=== PATIENT | female | born 1965 | race Caucasian/White ===

== ENCOUNTER 2016-08-31 11:21 | Emergency (ER) | payer BC ==
[2016-08-31] MEDS ORDERED: Aspirin 81 MG Tab.Chew PO ONE (11:22)
[2016-08-31] MEDS ORDERED: Aspirin 81 MG Tab.Chew ONE (11:24)
[2016-08-31 11:55] VITALS: BP 193/82
[2016-08-31] MEDS ORDERED: Ondansetron 4 MG/2 ML SDV ONE (12:01)
[2016-08-31] MEDS ORDERED: Ondansetron 4 MG/2 ML SDV IVPUSH ONE (12:09)
[2016-08-31] MEDS ORDERED: GI Cocktail 45 ML BOTTLE PO ONE (12:10)
[2016-08-31] MEDS ORDERED: Acetaminophen 500 MG Tab PO ONE (12:10)
[2016-08-31 12:26] LABS: CHLORIDE,CL 101 mmol/L (98-115); SODIUM,NA 136 mmol/L (136-145)
--- NOTE | 2016-08-31 12:35 | EDM.PDOC ---
ED HPI GENERAL MEDICAL PROBLEM - General Chief Complaint: Chest Pain Stated Complaint: chest pain, headache Time Seen by Provider: 08/31/16 11:30 Source of Information: Reports: Patient History Limitations: Reports: No Limitations - History of Present Illness INITIAL COMMENTS - FREE TEXT/NARRATIVE: 51-year-old female presents to the emergency room with complaints of epigastric pain,headache, nausea. Her symptoms began yesterday after she reports that they fried some pizza burgers. She had some epigastric pain, and took Tums and this gave her some mild relief. She also noticed that her pain would radiate to her shoulder blades. She had associated nausea but no vomiting. She reports and describes the pain as a burning pain. Denied palpitations or chest pressure. He does have a history of reflux disease and takes Prilosec on a daily basis for the past 3 years. She reports no underlying coronary artery disease or high cholesterol she is aware of but her father had a massive MN and from this at the age 69. She is hypertensive and is on now for different blood pressure medications for this. She noticed that she woke up this morning with a headache and did notice some complaints of dyspnea on exertion. She called the clinic and they felt that she should present to the ER for further evaluation and workup. Onset: Gradual Onset Date: 08/30/16 Onset Time: 12:00 Duration: Hour(s):, Improving Location: Reports: Head (headache), Chest, Radiates to (shoulder blades) Quality: Reports: Ache, Burning. Denies: Stabbing, Throbbing Severity: Moderate Improves with: Reports: Medication (Tums) Worsens with: Reports: Eating (epigastric and chest pain after eating pizza burger frying jaquez) Associated Symptoms: Reports: Chest Pain, Malaise, Nausea/Vomiting, Shortness of Breath. 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(s) (Tums, Prilosec) Chest Pain Score (Numeric/FACES): 3 - Related Data Allergies Allergy/AdvReac Type Severity Reaction Status Date / Time hylan G-F 20 [From Synvisc] Allergy Hypertensio Verified 08/31/16 12:47 n sulfamethoxazole Allergy Itching Verified 08/31/16 12:47 [From Bactrim] trimethoprim [From Bactrim] Allergy Itching Verified 08/31/16 12:47 Home Meds: Home Meds Acetaminophen [Tylenol] 650 mg PO Q6H PRN 08/31/16 [History] Diltiazem HCl [Tiazac] 360 mg PO DAILY 08/31/16 [History] Hydrochlorothiazide 25 mg PO DAILY 08/31/16 [History] Ibuprofen 400 mg PO Q6H PRN 08/31/16 [History] Multivitamin [Multivitamins] 1 tab PO DAILY 08/31/16 [History] Nebivolol HCl [Bystolic] 10 mg PO BEDTIME 08/31/16 [History] Omeprazole 20 mg PO BEDTIME 08/31/16 [History] Quinapril HCl [Accupril] 20 mg PO BEDTIME 08/31/16 [History] cloNIDine HCl [Catapres] 1 tab PO BID PRN 08/31/16 [History] Social & Family History - Tobacco Use Smoking Status *Q: Former Smoker Years of Tobacco use: 10 Used Tobacco, but Quit: Yes Month Tobacco Last Used: 10 - Caffeine Use Caffeine Use: Reports: Coffee, Tea - Recreational Drug Use Recreational Drug Use: No ED ROS GENERAL - Review of Systems Review Of Systems: See Below Constitutional: Reports: Fatigue. Denies: Diaphoresis HEENT: Reports: No Symptoms Respiratory: Reports: Shortness of Breath Cardiovascular: Reports: Chest Pain, Blood Pressure Problem, Dyspnea on Exertion , Edema (reported swelling in her lower legs yesterday, was resolved this morning). Denies: Lightheadedness, Palpitations Endocrine: Reports: Fatigue GI/Abdominal: Reports: Nausea. Denies: Abdominal Pain, Bloody Stool, Constipation : Denies: Hematuria Musculoskeletal: Reports: Back Pain (upper back pain between his shoulder blades ). Denies: Neck Pain Skin: Reports: No Symptoms Neurological: Reports: Headache. Denies: Syncope, Trouble Speaking, Difficulty Walking, Change in Speech, Gait Disturbance Psychiatric: Reports: No Symptoms Hematologic/Lymphatic: Reports: No Symptoms Immunologic: Reports: No Symptoms ED EXAM, GENERAL - Physical Exam Exam: See Below Exam Limited By: No Limitations General Appearance: Alert, No Apparent Distress, Obese Eye Exam: Bilateral Eye: EOMI, PERRL Ears: Normal External Exam, Normal Canal, Hearing Grossly Normal, Normal TMs Nose: Normal Inspection Throat/Mouth: Normal Inspection, Normal Lips, Normal Teeth, Normal Gums, Normal Oropharynx, Normal Voice, No Airway Compromise Head: Atraumatic, Normocephalic Neck: Normal Inspection, Supple, Non-Tender, Full Range of Motion. No: Lymphadenopathy (L), Lymphadenopathy (R), Thyromegaly Respiratory/Chest: No Respiratory Distress, Lungs Clear, Normal Breath Sounds, No Accessory Muscle Use, Chest Non-Tender Cardiovascular: Normal Peripheral Pulses, Regular Rate, Rhythm, No Edema, No JVD , No Murmur Peripheral Pulses: 2+: Carotid (L), Carotid (R), Radial (L), Radial (R), Posterior Tibial (L), Posterior Tibial (R), Dorsalis Pedis (L), Dorsalis Pedis ( R) GI/Abdominal: Normal Bowel Sounds, Soft, Non-Tender, No Distention, No Abnormal Bruit Back Exam: Normal Inspection, Full Range of Motion, Paraspinal Tenderness ( right upper paraspinal thoracic). No: CVA Tenderness (L), CVA Tenderness (R) Extremities: Normal Inspection, Normal Range of Motion, Non-Tender, No Pedal Edema, Normal Capillary Refill Neurological: Alert, Oriented, No Motor/Sensory Deficits Psychiatric: Normal Affect, Normal Mood Skin Exam: Warm, Dry, Intact, Normal Color, No Rash Lymphatic: No Adenopathy EKG INTERPRETATION EKG Date: 08/31/16 Time: 11:38 Rhythm: NSR Rate (Beats/Min): 82 [place]: Normal P-Wave: Present QRS: Normal ST-T: Normal QT: Normal Comparison: NA - No Prior EKG EKG Interpretation Comments: Normal sinus rhythm Moderate voltage criteria for LVH, may be normal variant Course - Vital Signs Last Recorded V/S: Last Vital Signs Temp 99.5 F 08/31/16 11:48 Pulse 92 08/31/16 11:48 Resp 16 08/31/16 11:48 BP 193/82 H 08/31/16 11:48 Pulse Ox 100 08/31/16 11:48 - Orders/Labs/Meds Orders: Active Orders 24 hr Category Date Time Status EKG Documentation Completion [RC] STAT Care 08/31/16 11:53 Active Chest 2V [CR] Stat Exams 08/31/16 12:10 Ordered EKG 12 Lead [EK] Routine Ther 08/31/16 11:53 Ordered Labs: Laboratory Tests 08/31/16 08/31/16 Range/Units 11:45 11:45 WBC 12.0 H (5.0-10.0) 10^3/uL RBC 4.95 (3.80-5.50) 10^6/uL Hgb 13.8 (12.0-16.0) g/dL Hct 41.5 (37.0-47.0) % MCV 83.8 (82.0-92.0) fL MCH 27.9 (27.0-31.0) pg MCHC 33.3 (32.0-36.0) g/dL RDW 14.0 (11.5-14.5) % Plt Count 319 H (150-300) 10^3/uL MPV 8.0 (7.4-10.4) fL Neut % (Auto) 73.9 H (50.0-70.0) % Lymph % (Auto) 16.6 L (20.0-40.0) % [place] % (Auto) 5.9 (2.0-8.0) % Eos % (Auto) 2.9 (1.0-3.0) % Baso % (Auto) 0.7 (0.0-1.0) % Neut # (Auto) 8.9 H (2.5-7.0) 10^3/uL Lymph # (Auto) 2.0 (1.0-4.0) 10^3/uL [place] # (Auto) 0.7 (0.1-0.8) 10^3/uL Eos # (Auto) 0.3 (0.1-0.3) 10^3/uL Baso # (Auto) 0.1 (0.0-0.1) 10^3/uL Sodium 136 (136-145) mmol/L Potassium 3.4 (3.3-5.3) mmol/L Chloride 101 (98-115) mmol/L Carbon Dioxide 26.1 (21.0-32.0) mmol/L BUN 13 (6-25) mg/dL Creatinine 0.62 (0.51-1.17) mg/dL Est Cr Clr Drug Dosing 86.80 mL/min Estimated GFR (MDRD) > 60 mL/min Glucose 136 H (70-110) mg/dL Calcium 9.6 (8.7-10.3) mg/dL Creatine Kinase 65 (26-276) U/L CK-MB (CK-2) < 0.50 (0.00-4.30) ng/mL Troponin I < 0.04 (0.00-0.070) ng/mL Meds: Medications Discontinued Medications Generic Name Dose Route Start Last Admin Trade Name Sylvia PRN Reason Stop Dose Admin Acetaminophen 1,000 mg 08/31/16 12:10 08/31/16 12:22 Tylenol Extra Strength PO 08/31/16 12:11 1,000 mg ONETIME ONE Administration Al Hydroxide/Mg Hydroxide 45 ml 08/31/16 12:10 08/31/16 12:22 Gi Cocktail PO 08/31/16 12:11 45 ml ONETIME ONE Administration Aspirin Confirm 08/31/16 11:24 08/31/16 12:07 Aspirin Administered 08/31/16 11:25 Not Given Dose 324 mg .ROUTE .STK-MED ONE Aspirin 324 mg 08/31/16 11:22 08/31/16 11:23 Aspirin PO 08/31/16 11:23 324 mg ONETIME ONE Administration Ondansetron HCl Confirm 08/31/16 12:01 08/31/16 12:07 Zofran Administered 08/31/16 12:02 Not Given Dose 4 mg .ROUTE .STK-MED ONE Ondansetron HCl 4 mg 08/31/16 12:09 08/31/16 12:01 Zofran IVPUSH 08/31/16 12:10 4 mg ONETIME ONE Administration - Re-Assessments/Exams Free Text/Narrative Re-Assessment/Exam: 08/31/16 12:41 Patient was given 4 chewable aspirin on admission. IV was placed in her right antecubital She was given a GI cocktail, 4 mg of Zofran, 1000 mg of Tylenol. EKG and chest x-ray were completed. Chest x-ray was no acute process. EKG normal sinus rhythm Free Text/Narrative Re-Assessment/Exam: 08/31/16 12:48 Patient states that her headache has resolved. Her nausea is resolved. Chest pain is resolved. Troponin was normal at 0.04 Departure - Departure Time of Disposition: 13:20 Disposition: Home, Self-Care 01 Condition: Good Clinical Impression: Atypical chest pain Gastroesophageal reflux disease Qualifiers: Esophagitis presence: esophagitis presence not specified Qualified Code(s): K21.9 - Gastro-esophageal reflux disease without esophagitis Instructions: Nonspecific Chest Pain, [id number], Gastroesophageal Reflux Disease, Adult, [id number] Referrals: Ashlee Hogan PA-C [Primary Care Provider] - Forms: ED Department Discharge Additional Instructions: 1. Rest today. No work today. 2. Avoid working in the heat. 3. Resume your regular home medications 4. Recommend follow-up with your primary care next week for recheck. Recommend patient proceed with a stress test to rule out underlying cardiovascular disease. 5. Return to the emergency room if -Chest discomfort last greater than 5 minutes -Chest discomfort gets worse in any way -History of angina, and discomfort not relieved by usual medications -Shortness of breath, sweats, dizziness, vomiting, or nausea with chest pain or chest discomfort -Chest discomfort moves into her arms, neck, back, jaw, or stomach - My Orders Last 24 Hours: My Active Orders 08/31/16 11:53 EKG Documentation Completion [RC] STAT EKG 12 Lead [EK] Routine 08/31/16 12:10 Chest 2V [CR] Stat - Assessment/Plan Last 24 Hours: My Active Orders 08/31/16 11:53 EKG Documentation Completion [RC] STAT EKG 12 Lead [EK] Routine 08/31/16 12:10 Chest 2V [CR] Stat Assessment:: 1. Atypical chest pain, cardiac markers and EKG are normal 2. GERD, resolved with GI cocktail. 3. Nausea resolved with Zofran IV 4 mg 4. Headache, resolved with 1000 mg of Tylenol Plan: 1. Continue with her home regimen of medications. 2. Avoid spicy and fatty foods. 3. Follow-up with your primary care next week. Recommend further evaluation with a stress test. 4. Return to emergency room if -Chest discomfort lasts greater than 5 minutes -Chest discomfort gets worse in any way -History of angina, and discomfort not relieved by your usual medications -Shortness of breath, sweats, dizziness, vomiting, or nausea with chest pain or chest discomfort -Chest discomfort moves into your arm, neck, back, jaw, or stomach 5. No work today and avoid working out in the excessive heat.
== END 2016-08-31 13:20 | disposition home or self-care (01) ==
LOC: KA.ED 11:21
DX: K21.9 Gastro-esophageal reflux disease without esophagitis (principal); I10 Essential (primary) hypertension; Z87.891 Personal history of nicotine dependence; Z79.899 Other long term (current) drug therapy; Z88.1 Allergy status to other antibiotic agents; Z88.2 Allergy status to sulfonamides; Z88.8 Allergy status to other drugs, medicaments and biological substances
CPT/HCPCS: 36415; 71020; 80048; 82550; 82553; 84484; 85025; 96374; 99285; A9270; J2405; 93005

== ENCOUNTER 2017-02-14 23:15 | Emergency (ER) | payer BC ==
[2017-02-14 23:27] VITALS: BP 164/89
[2017-02-14] MEDS ORDERED: Cephalexin 250 MG Cap ONE (23:56)
--- NOTE | 2017-02-15 00:02 | EDM.PDOC ---
ED HPI GENERAL MEDICAL PROBLEM - General Chief Complaint: Cardiovascular Problem Stated Complaint: HYPERTENSION Time Seen by Provider: 02/14/17 23:30 Source of Information: Reports: Patient History Limitations: Reports: No Limitations - History of Present Illness INITIAL COMMENTS - FREE TEXT/NARRATIVE: 52 YO WF presents to ER complaining of elevated blood pressure and right eyelid swelling. Pt reports she was seen 2 days ago in clinic and treated for pink eye , but since has noticed swelling and increased pain to right upper eyelid. Pt with longstanding history of hypertension on multiple medications who states she felt like her blood pressure was elevated and took reading 140/105- Pt took clonidine 0.1mg PO and retook blood pressure and it was still the same prompting ER evaluation. Pt denies any chest pain or headache at this time. Onset Date: 02/12/17 Duration: Day(s): (3), Chronic Location: Reports: Face Quality: Reports: Ache Severity: Mild Improves with: Reports: None Worsens with: Reports: None Associated Symptoms: Reports: No Other Symptoms. Denies: Chest Pain, Nausea/ Vomiting, Shortness of Breath, Syncope, Weakness Headache Pain Score (Numeric/FACES): 6 - Related Data Allergies Allergy/AdvReac Type Severity Reaction Status Date / Time hylan G-F 20 [From Synvisc] Allergy Hypertensio Verified 02/14/17 23:34 n sulfamethoxazole Allergy Itching Verified 02/14/17 23:34 [From Bactrim] trimethoprim [From Bactrim] Allergy Itching Verified 02/14/17 23:34 Home Meds: Home Meds Acetaminophen [Tylenol] 650 mg PO Q6H PRN 08/31/16 [History] Diltiazem HCl [Tiazac] 360 mg PO DAILY 08/31/16 [History] Hydrochlorothiazide 25 mg PO DAILY 08/31/16 [History] Ibuprofen 400 mg PO Q6H PRN 08/31/16 [History] Multivitamin [Multivitamins] 1 tab PO DAILY 08/31/16 [History] Nebivolol HCl [Bystolic] 10 mg PO BEDTIME 08/31/16 [History] Omeprazole 20 mg PO BEDTIME 08/31/16 [History] Quinapril HCl [Accupril] 20 mg PO BEDTIME 08/31/16 [History] cloNIDine HCl [Catapres] 1 tab PO BID PRN 08/31/16 [History] Ciprofloxacin HCl [Ciprofloxacin HCl] 1 drop EYEBOTH Q4HR 02/14/17 [History] Ranitidine HCl [Ranitidine] 1 tab PO TID PRN 02/14/17 [History] Cephalexin [Keflex] 500 mg PO Q6HR #40 cap 02/15/17 [Rx] Past Medical History HEENT History: Reports: Allergic Rhinitis, Impaired Vision Cardiovascular History: Reports: Hypertension Gastrointestinal History: Reports: GERD 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) Other OB/BYN 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 Musculoskeletal History: Reports: Arthritis, Fracture Neurological History: Reports: Migraines Psychiatric History: Reports: Depression - Infectious Disease History Infectious Disease History: Reports: Chicken Pox, Measles, Mumps, Rubella - Past Surgical History Head Surgeries/Procedures: Reports: None HEENT Surgical History: Reports: None Cardiovascular Surgical History: Reports: None GI Surgical History: Reports: None Neurological Surgical History: Reports: None Musculoskeletal Surgical History: Reports: Arthroscopic Knee Social & Family History - Family History Family Medical History: Noncontributory - Tobacco Use Smoking Status *Q: Former Smoker Years of Tobacco use: 10 Used Tobacco, but Quit: Yes Month Tobacco Last Used: 10 - Caffeine Use Caffeine Use: Reports: Coffee, Tea - Recreational Drug Use Recreational Drug Use: No ED ROS GENERAL - Review of Systems Review Of Systems: See Below Constitutional: Reports: No Symptoms HEENT: Reports: Eye Pain (right upper eyelid) Respiratory: Reports: No Symptoms Cardiovascular: Reports: No Symptoms Endocrine: Reports: No Symptoms GI/Abdominal: Reports: No Symptoms : Reports: No Symptoms Musculoskeletal: Reports: No Symptoms Skin: Reports: No Symptoms Neurological: Reports: No Symptoms Psychiatric: Reports: No Symptoms Hematologic/Lymphatic: Reports: No Symptoms Immunologic: Reports: No Symptoms ED EXAM, GENERAL - Physical Exam Exam: See Below Exam Limited By: No Limitations General Appearance: Alert, WD/WN, No Apparent Distress Eye Exam: Right Eye: Other (blepheritis/cellulitis to upper eyelid), Bilateral Eye: EOMI, PERRL Throat/Mouth: Normal Inspection, Normal Lips, Normal Teeth, Normal Gums, Normal Oropharynx, Normal Voice, No Airway Compromise Head: Atraumatic, Normocephalic Neck: Normal Inspection, Supple, Non-Tender, Full Range of Motion Respiratory/Chest: No Respiratory Distress, Lungs Clear, Normal Breath Sounds, No Accessory Muscle Use, Chest Non-Tender Cardiovascular: Normal Peripheral Pulses, Regular Rate, Rhythm, No Edema, No Gallop, No JVD, No Murmur, No Rub GI/Abdominal: Normal Bowel Sounds, Soft, Non-Tender, No Organomegaly, No Distention, No Abnormal Bruit, No Mass Back Exam: Normal Inspection, Full Range of Motion, NT Extremities: Normal Inspection, Normal Range of Motion, Non-Tender, Normal Capillary Refill, No Pedal Edema Neurological: Alert, Oriented, CN II-XII Intact, Normal Cognition, Normal Gait, Normal Reflexes, No Motor/Sensory Deficits Psychiatric: Normal Affect, Normal Mood Skin Exam: Warm, Dry, Intact, Normal Color, No Rash Lymphatic: No Adenopathy Course - Vital Signs Last Recorded V/S: Last Vital Signs Temp 36.6 C 02/14/17 23:23 Pulse 98 02/14/17 23:23 Resp 18 02/14/17 23:23 BP 164/89 H 02/14/17 23:23 Pulse Ox 99 02/14/17 23:23 Departure - Departure Time of Disposition: 00:07 Disposition: Home, Self-Care 01 Condition: Good Clinical Impression: Blepharitis Qualifiers: Laterality: right Eyelid: upper Hypertension Qualifiers: Hypertension type: essential hypertension Qualified Code(s): I10 - Essential ( primary) hypertension Prescriptions: Cephalexin [Keflex] 500 mg PO Q6HR #40 cap Instructions: Hypertension, [id number], Blepharitis Referrals: Ashlee Hogan PA-C [Primary Care Provider] - - Assessment/Plan Assessment:: 1. blepheritits 2. essential hypertension- controlled Plan: 1. keflex 500mg PO Q6 x 10 days 2. continue current bp medications 3. follow up in clinic for further evaluation and treatment of Htn 4. return to ER for chest pain, headache or worsening symptoms
[2017-02-21] MEDS ORDERED: Cephalexin 250 MG Cap PO ONE (16:55)
== END 2017-02-15 00:15 | disposition home or self-care (01) ==
LOC: KA.ED 23:15
DX: H01.001 Unspecified blepharitis right upper eyelid (principal); I10 Essential (primary) hypertension; K21.9 Gastro-esophageal reflux disease without esophagitis; F32.9 Major depressive disorder, single episode, unspecified; Z79.899 Other long term (current) drug therapy; Z88.1 Allergy status to other antibiotic agents; Z88.2 Allergy status to sulfonamides; Z88.8 Allergy status to other drugs, medicaments and biological substances
CPT/HCPCS: 99282; A9270-GY

== ENCOUNTER 2019-01-03 22:53 | Emergency (ER) | payer BC ==
[2019-01-03 23:09] VITALS: BP 122/62; PULSE 72
--- NOTE | 2019-01-03 23:34 | EDM.PDOC ---
ED HPI GENERAL MEDICAL PROBLEM - General Chief Complaint: Genitourinary Problem Stated Complaint: UTI symptom Time Seen by Provider: 01/03/19 23:18 Source of Information: Reports: Patient History Limitations: Reports: No Limitations - History of Present Illness INITIAL COMMENTS - FREE TEXT/NARRATIVE: 53-year-old female presents to emergency room with complaints of hematuria and urinary frequency. She's been having some discomfort for approximately 5 days. She denies any fever or chills, no nausea or vomiting. She noticed some blood in her urine today. She denies any abdominal pain. She's been experiencing some low back pain today. She discussed the symptoms with a nurse at the [employer] where she works and they recommended that she come in for further evaluation. 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 She does have a history high blood pressure which is well controlled with her medications. She denies any other significant medical issues. Onset: Gradual Onset Date: 12/29/18 Duration: Day(s):, Getting Worse Location: Reports: Back Quality: Reports: Ache Severity: Moderate Improves with: Reports: None Worsens with: Reports: None Associated Symptoms: Reports: Other (Urinary frequency). Denies: Fever/Chills, Nausea/Vomiting, Shortness of Breath Bilateral Lower Back Pain Score (Numeric/FACES): 6 - Related Data Allergies Allergy/AdvReac Type Severity Reaction Status Date / Time sulfamethoxazole Allergy Intermediate Itching Verified 01/03/19 23:50 [From Bactrim] hylan G-F 20 [From Synvisc] Allergy Hypertensio Verified 02/14/17 23:34 n trimethoprim [From Bactrim] Allergy Itching Verified 02/14/17 23:34 Home Meds: Home Meds Acetaminophen [Tylenol] 650 mg PO Q6H PRN 08/31/16 [History] Diltiazem HCl [Tiazac] 360 mg PO DAILY 08/31/16 [History] Hydrochlorothiazide 25 mg PO DAILY 08/31/16 [History] Ibuprofen 400 mg PO Q6H PRN 08/31/16 [History] Multivitamin [Multivitamins] 1 tab PO DAILY 08/31/16 [History] Nebivolol HCl [Bystolic] 10 mg PO BEDTIME 08/31/16 [History] Omeprazole 20 mg PO BEDTIME 08/31/16 [History] Quinapril HCl [Accupril] 20 mg PO BEDTIME 08/31/16 [History] cloNIDine HCl [Catapres] 1 tab PO BID PRN 08/31/16 [History] Ciprofloxacin HCl 1 drop EYEBOTH Q4HR 02/14/17 [History] Ranitidine HCl [Ranitidine] 1 tab PO TID PRN 02/14/17 [History] Cephalexin [Keflex] 500 mg PO Q6HR #40 cap 02/15/17 [Rx] Past Medical History HEENT History: Reports: Allergic Rhinitis, Impaired Vision Cardiovascular History: Reports: Hypertension Gastrointestinal History: Reports: GERD 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 Musculoskeletal History: Reports: Arthritis, Fracture Neurological History: Reports: Migraines Psychiatric History: Reports: Depression - Infectious Disease History Infectious Disease History: Reports: Chicken Pox, Measles, Mumps, Rubella - Past Surgical History Head Surgeries/Procedures: Reports: None HEENT Surgical History: Reports: None Cardiovascular Surgical History: Reports: None GI Surgical History: Reports: None Neurological Surgical History: Reports: None Musculoskeletal Surgical History: Reports: Arthroscopic Knee Social & Family History - Family History Family Medical History: Noncontributory - Tobacco Use Smoking Status *Q: Never Smoker Second Hand Smoke Exposure: No - Caffeine Use Caffeine Use: Reports: Coffee - Recreational Drug Use Recreational Drug Use: No ED ROS GENERAL - Review of Systems Review Of Systems: See Below Constitutional: Denies: Fever, Chills, Malaise HEENT: Reports: No Symptoms Respiratory: Reports: No Symptoms Cardiovascular: Reports: No Symptoms Endocrine: Reports: No Symptoms GI/Abdominal: Denies: Abdominal Pain, Nausea, Vomiting : Reports: Flank Pain, Frequency, Hematuria Musculoskeletal: Reports: Back Pain Skin: Reports: No Symptoms Neurological: Reports: No Symptoms Psychiatric: Reports: No Symptoms Hematologic/Lymphatic: Reports: No Symptoms Immunologic: Reports: No Symptoms ED EXAM, RENAL/ - Physical Exam Exam: See Below Exam Limited By: No Limitations General Appearance: Alert, No Apparent Distress, Obese Eye Exam: Bilateral Eye: EOMI Ears: Hearing Grossly Normal Nose: Normal Inspection Throat/Mouth: Normal Lips, Normal Voice, No Airway Compromise Head: Atraumatic Respiratory/Chest: No Respiratory Distress, Lungs Clear, Normal Breath Sounds, No Accessory Muscle Use, Chest Non-Tender Cardiovascular: Regular Rate, Rhythm GI/Abdominal: Soft Back Exam: Normal Inspection, Full Range of Motion, Paraspinal Tenderness. No: CVA Tenderness (L), CVA Tenderness (R), Vertebral Tenderness Extremities: Normal Inspection, Normal Range of Motion Neurological: Alert, Oriented, No Motor/Sensory Deficits Psychiatric: Normal Affect, Normal Mood Skin Exam: Warm, Dry, Intact, Normal Color, No Rash Lymphatic: No Adenopathy Course - Vital Signs Last Recorded V/S: Last Vital Signs Temp 97.4 F 01/03/19 23:08 Pulse 72 01/03/19 23:08 Resp 18 01/03/19 23:08 BP 122/62 01/03/19 23:08 Pulse Ox 96 01/03/19 23:08 - Orders/Labs/Meds Orders: Active Orders 24 hr Category Date Time Status BASIC METABOLIC PANEL,BMP [CHEM] Stat Lab 01/03/19 23:01 Ordered CBC WITH AUTO DIFF [HEME] Stat Lab 01/03/19 23:01 Ordered UA W/MICROSCOPIC [URIN] Stat Lab 01/03/19 23:01 Ordered Departure - Departure Time of Disposition: 00:07 Disposition: Home, Self-Care 01 Condition: Good Clinical Impression: UTI, Urinary tract infectious disease - Discharge Information - My Orders Last 24 Hours: My Active Orders 01/03/19 23:01 BASIC METABOLIC PANEL,BMP [CHEM] Stat CBC WITH AUTO DIFF [HEME] Stat UA W/MICROSCOPIC [URIN] Stat - Assessment/Plan Last 24 Hours: My Active Orders 01/03/19 23:01 BASIC METABOLIC PANEL,BMP [CHEM] Stat CBC WITH AUTO DIFF [HEME] Stat UA W/MICROSCOPIC [URIN] Stat Assessment:: uti Plan: 1. Cipro 500 mg twice a day for 5 days 2. Continue with oral hydration 3. Follow-up in 48 hours with your primary care. Your urine was cultured sensitivities should be done. 4. Tylenol or ibuprofen as needed for any pain or discomfort.
[2019-01-03 23:55] LABS: ANION GAP 14.3 mmol/L (5-15)
[2019-01-04] MEDS: Ciprofloxacin 500 MG Tab ONE (00:14)
[2019-01-04] MEDS ORDERED: Ciprofloxacin 500 MG Tab PO SCH (09:00)
== END 2019-01-04 00:25 | disposition home or self-care (01) ==
LOC: KA.ED 22:53
DX: N39.0 Urinary tract infection, site not specified (principal); R31.9 Hematuria, unspecified; I10 Essential (primary) hypertension; K21.9 Gastro-esophageal reflux disease without esophagitis; F32.9 Major depressive disorder, single episode, unspecified; Z79.899 Other long term (current) drug therapy; Z88.2 Allergy status to sulfonamides; Z88.8 Allergy status to other drugs, medicaments and biological substances
CPT/HCPCS: 36415; 80048; 81001; 85025; 87086; 99283; A9270-GY

== ENCOUNTER 2020-07-27 10:45 | Emergency (ER) | payer BC ==
--- NOTE | 2020-07-27 11:34 | EDM.PDOC ---
ED HPI GENERAL MEDICAL PROBLEM - General Chief Complaint: Chest Pain Stated Complaint: CHEST PAIN Time Seen by Provider: 07/27/20 11:18 Source of Information: Reports: Patient History Limitations: Reports: No Limitations - History of Present Illness INITIAL COMMENTS - FREE TEXT/NARRATIVE: Patient presents with pain in right neck, shoulder and right upper chest that she first noticed at 0900 when she awoke. 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 Later as she was running errands she the chest pain was worse (7/10 at worst for a couple minutes but improved with rest). The neck and shoulder pain is worse with turning head to right. She rates pain at 2/10 now at rest. She has had a cough for 3-4 days with some phlegm and has noticed breathing is a little labored; kind of similar to a past episode of pneumonia. Right Neck Pain Score (Numeric/FACES): 5 - Related Data Allergies Allergy/AdvReac Type Severity Reaction Status Date / Time sulfamethoxazole Allergy Intermediate Itching Verified 07/27/20 11:09 [From Bactrim] hylan G-F 20 [From Synvisc] Allergy Hypertensio Verified 07/27/20 11:09 n trimethoprim [From Bactrim] Allergy Itching Verified 07/27/20 11:09 Home Meds: Home Meds Acetaminophen [Tylenol] 650 mg PO Q6H PRN 08/31/16 [History] Hydrochlorothiazide 25 mg PO DAILY 08/31/16 [History] Ibuprofen 400 mg PO Q6H PRN 08/31/16 [History] Multivitamin [Multivitamins] 1 tab PO DAILY 08/31/16 [History] Nebivolol HCl [Bystolic] 10 mg PO BEDTIME 08/31/16 [History] Omeprazole 20 mg PO BEDTIME 08/31/16 [History] Quinapril HCl [Accupril] 20 mg PO BEDTIME 08/31/16 [History] cloNIDine HCL [Catapres] 1 tab PO BID PRN 08/31/16 [History] dilTIAZem HCL [Tiazac] 360 mg PO DAILY 08/31/16 [History] Past Medical History HEENT History: Reports: Allergic Rhinitis, Impaired Vision Cardiovascular History: Reports: Hypertension Gastrointestinal History: Reports: GER[employer]MER History: Reports: Other (See Below) 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 Musculoskeletal History: Reports: Arthritis, Fracture Neurological History: Reports: Migraines Psychiatric History: Reports: Depression - Infectious Disease History Infectious Disease History: Reports: Chicken Pox, Measles, Mumps, Rubella - Past Surgical History Head Surgeries/Procedures: Reports: None HEENT Surgical History: Reports: None Cardiovascular Surgical History: Reports: None GI Surgical History: Reports: None Neurological Surgical History: Reports: None Musculoskeletal Surgical History: Reports: Arthroscopic Knee Social & Family History - Family History Family Medical History: No Pertinent Family History - Caffeine Use Caffeine Use: Reports: Coffee ED ROS GENERAL - Review of Systems Review Of Systems: See Below Constitutional: Reports: Malaise, Fatigue. Denies: Fever, Chills, Weakness HEENT: Denies: Ear Pain, Vision Change Respiratory: Reports: Shortness of Breath (mild), Cough Cardiovascular: Reports: Chest Pain, Lightheadedness. Denies: Syncope GI/Abdominal: Reports: Nausea. Denies: Abdominal Pain, Constipation, Diarrhea, Vomiting : Denies: Dysuria, Flank Pain Musculoskeletal: Reports: Neck Pain, Shoulder Pain. Denies: Arm Pain, Back Pain, Hand Pain, Leg Pain Skin: Denies: Cyanosis, Jaundice, Mottled, Pallor, Diaphoresis Neurological: Denies: Confusion, Dizziness, Headache, Seizure, Syncope, Trouble Speaking, Difficulty Walking Psychiatric: Denies: Agitation, Anxiety, Confusion ED EXAM, GENERAL - Physical Exam Exam: See Below Exam Limited By: No Limitations General Appearance: Alert, WD/WN, No Apparent Distress Eye Exam: Bilateral Eye: EOMI, Normal Inspection, PERRL Ears: Normal External Exam, Hearing Grossly Normal Nose: Normal Inspection, No Blood Throat/Mouth: Normal Inspection, Normal Lips, Normal Voice, No Airway Compromise Head: Atraumatic, Normocephalic Respiratory/Chest: No Respiratory Distress, No Accessory Muscle Use, Crackles (Right lung base). No: Rhonchi, Wheezing, Stridor, Accessory Muscle Use Cardiovascular: Regular Rate, Rhythm, No Murmur GI/Abdominal: Normal Bowel Sounds, Soft, Non-Tender, No Organomegaly, No Distention, No Abnormal Bruit Back Exam: Normal Inspection, Full Range of Motion. No: CVA Tenderness (L), CVA Tenderness (R) Extremities: Normal Inspection, Normal Range of Motion Neurological: Alert, Oriented, Normal Cognition, No Motor/Sensory Deficits Psychiatric: Normal Affect, Normal Mood Skin Exam: Warm, Dry, Intact, Normal Color, No Rash Course - Vital Signs Last Recorded V/S: Last Vital Signs Temp 96.0 F L 07/27/20 10:46 Pulse 63 07/27/20 12:30 Resp 18 07/27/20 12:30 BP 145/95 H 07/27/20 12:30 Pulse Ox 94 L 07/27/20 12:30 - Orders/Labs/Meds Orders: Active Orders 24 hr Category Date Time Status EKG Documentation Completion [RC] ASDIRECTED Care 07/27/20 11:15 Active EKG 12 Lead [EK] Stat Ther 07/27/20 10:50 Ordered Labs: Laboratory Tests 07/27/20 07/27/20 07/27/20 Range/Units 11:10 11:10 11:10 WBC 8.68 (5.00-10.00) 10^3/uL RBC 4.77 (3.80-5.50) 10^6/uL Hgb 13.4 (12.0-16.0) g/dL Hct 41.1 (37.0-47.0) % MCV 86.2 (82.0-92.0) fL MCH 28.1 (27.0-31.0) pg MCHC 32.6 (32.0-36.0) g/dL RDW 14.3 (11.5-14.5) % Plt Count 345 (150-400) 10^3/uL MPV 10.0 (7.4-10.4) fL Immature Gran % (Auto) 0.1 (0.0-5.0) % Neut % (Auto) 64.9 (50.0-70.0) % Lymph % (Auto) 24.3 (20.0-40.0) % [place] % (Auto) 7.1 (2.0-8.0) % Eos % (Auto) 3.0 (1.0-3.0) % Baso % (Auto) 0.6 (0.0-1.0) % Neut # (Auto) 5.63 (2.50-7.00) 10^3/uL Lymph # (Auto) 2.11 (1.00-4.00) 10^3/uL [place] # (Auto) 0.62 (0.10-0.80) 10^3/uL Eos # (Auto) 0.26 (0.10-0.30) 10^3/uL Baso # (Auto) 0.05 (0.00-0.10) 10^3/uL Immature Gran # (Auto) 0.01 (0.00-0.50) 10^3/uL Sodium 140 (136-145) mmol/L Potassium 3.4 L (3.5-5.1) mmol/L Chloride 101 (98-107) mmol/L Carbon Dioxide 25.8 (21.0-32.0) mmol/L Anion Gap 16.6 H (5-15) mmol/L BUN 17 (7-18) mg/dL Creatinine 0.68 (0.51-1.17) mg/dL Est Cr Clr Drug Dosing 75.51 mL/min Estimated GFR (MDRD) > 60 mL/min Glucose 163 H (70-140) mg/dL Calcium 9.8 (8.7-10.3) mg/dL Troponin I High Sens 5.900 (0-51.000) pg/mL 07/27/20 Range/Units 14:00 WBC (5.00-10.00) 10^3/uL RBC (3.80-5.50) 10^6/uL Hgb (12.0-16.0) g/dL Hct (37.0-47.0) % MCV (82.0-92.0) fL MCH (27.0-31.0) pg MCHC (32.0-36.0) g/dL RDW (11.5-14.5) % Plt Count (150-400) 10^3/uL MPV (7.4-10.4) fL Immature Gran % (Auto) (0.0-5.0) % Neut % (Auto) (50.0-70.0) % Lymph % (Auto) (20.0-40.0) % [place] % (Auto) (2.0-8.0) % Eos % (Auto) (1.0-3.0) % Baso % (Auto) (0.0-1.0) % Neut # (Auto) (2.50-7.00) 10^3/uL Lymph # (Auto) (1.00-4.00) 10^3/uL [place] # (Auto) (0.10-0.80) 10^3/uL Eos # (Auto) (0.10-0.30) 10^3/uL Baso # (Auto) (0.00-0.10) 10^3/uL Immature Gran # (Auto) (0.00-0.50) 10^3/uL Sodium (136-145) mmol/L Potassium (3.5-5.1) mmol/L Chloride (98-107) mmol/L Carbon Dioxide (21.0-32.0) mmol/L Anion Gap (5-15) mmol/L BUN (7-18) mg/dL Creatinine (0.51-1.17) mg/dL Est Cr Clr Drug Dosing mL/min Estimated GFR (MDRD) mL/min Glucose (70-140) mg/dL Calcium (8.7-10.3) mg/dL Troponin I High Sens 5.600 (0-51.000) pg/mL Meds: Medications Discontinued Medications Generic Name Dose Route Start Last Admin Trade Name Sylvia PRN Reason Stop Dose Admin Ibuprofen 600 mg 07/27/20 12:17 07/27/20 12:28 Ibuprofen 600 Mg Tab PO 07/27/20 12:18 600 mg ONETIME ONE Administration - Re-Assessments/Exams Free Text/Narrative Re-Assessment/Exam: 07/27/20 11:37 She says when she had pneumonia she had a fever up to 106 because she waited so long to get checked. 07/27/20 12:19 When patient went to [facility] and raised her arm to the bar she developed worse upper right chest pain and sharp pain at right scapula. Palpation of these two areas reproduces this pain. 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 Troponin is normal now. We will recheck troponin at 3-hr interval. 07/27/20 12:24 CXR reports normal heart and lungs. 07/27/20 14:52 Second troponin is 5.6, virtually unchanged from 5.9 initially (high sensitivity assay normal is 0-51). Patient says she is feeling quite a bit better after the Ibuprofen. We discussed findings and recommendations. Patient discharged to home in stable condition. Departure - Departure Time of Disposition: 14:49 Disposition: Home, Self-Care 01 Condition: Good Clinical Impression: Muscle strain of anterior chest wall Muscle strain of right scapular region Qualifiers: Encounter type: initial encounter Qualified Code(s): S46.911A - Strain of unspecified muscle, fascia and tendon at shoulder and upper arm level, right arm, initial encounter - Discharge Information Instructions: Muscle Strain, [id number] Referrals: Jacquelyn Shirley MD [Primary Care Provider] - Forms: ED Department Discharge Additional Instructions: Drink 8 cups of water daily. Use the Ibuprofen as needed up to 600 mg every 8 hours. Follow up with your PCP if any problems persist. Recheck with PCP or ER if worsening. Sepsis Event Note (ED) - Evaluation Sepsis Screening Result: No Definite Risk - Focused Exam Vital Signs: Vital Signs Temp Pulse Resp BP Pulse Ox 07/27/20 12:30 63 18 145/95 H 94 L 07/27/20 12:00 65 20 161/100 H 92 L 07/27/20 11:30 69 18 157/91 H 93 L 07/27/20 11:00 86 18 169/86 H 95 07/27/20 10:46 96.0 F L 79 20 151/99 H - My Orders Last 24 Hours: My Active Orders 07/27/20 10:50 EKG 12 Lead [EK] Stat 07/27/20 11:15 EKG Documentation Completion [RC] ASDIRECTED - Assessment/Plan Last 24 Hours: My Active Orders 07/27/20 10:50 EKG 12 Lead [EK] Stat 07/27/20 11:15 EKG Documentation Completion [RC] ASDIRECTED
--- NOTE | 2020-07-27 11:50 | CR ---
[id number] RAD/RAD Chest PA And Lateral EXAM: FRONTAL AND LATERAL CHEST INDICATION: CRACKLES IN RIGHT LUNG BASE, DYSPNEA. COMPARISON: August 31, 2016. DISCUSSION: The heart and lungs are normal in appearance. IMPRESSION: 1. Negative exam. Maximino Maldonado MD 07/27/20 0696 Thank you for allowing us to participate in the care of your patient.
[2020-07-27 11:55] LABS: ANION GAP 16.6 mmol/L (5-15); CHLORIDE,CL 101 mmol/L (98-107); SODIUM,NA 140 mmol/L (136-145)
[2020-07-27] MEDS: Ibuprofen 600 MG Tab PO ONE (12:28)
[2020-07-27 15:10] VITALS: BP 147/87; PULSE 65
== END 2020-07-27 15:05 | disposition home or self-care (01) ==
LOC: KA.ED 10:45
DX: S29.011A Strain of muscle and tendon of front wall of thorax, initial encounter (principal); S46.911A Strain of unspecified muscle, fascia and tendon at shoulder and upper arm level, right arm, initial encounter; K21.9 Gastro-esophageal reflux disease without esophagitis; I10 Essential (primary) hypertension; Z79.899 Other long term (current) drug therapy; Z88.8 Allergy status to other drugs, medicaments and biological substances; Z88.1 Allergy status to other antibiotic agents; X50.1XXA Overexertion from prolonged static or awkward postures, initial encounter
CPT/HCPCS: 36415; 71046; 80048; 84484; 85025; 93005; 99283; 99284-25; A9270-GY

== ENCOUNTER 2021-06-28 10:37 | Day surgery (SDC) | payer BC ==
[2021-06-28] MEDS ORDERED: Propofol 200 MG/20 ML SDV IV ONE (10:38)
[2021-06-28] MEDS ORDERED: Lactated Ringers 1,000 ML IV SCH (11:00)
[2021-06-28] MEDS ORDERED: Sodium Chloride 0.9% 10 ML Syringe FLUSH PRN (11:00)
[2021-06-28] MEDS ORDERED: Midazolam 1 MG/ML 2 ML SDV ONE (12:08)
[2021-06-28] MEDS ORDERED: Propofol 200 MG/20 ML SDV ONE ×2 (12:08→12:45)
[2021-06-28 13:59] VITALS: BP 145/87; PULSE 72
== END 2021-06-28 14:05 | disposition home or self-care (01) ==
LOC: KA.SDS 10:37
PROVIDERS: ATTEND Family Medicine
DX: D12.4 Benign neoplasm of descending colon (principal); D12.5 Benign neoplasm of sigmoid colon; D12.8 Benign neoplasm of rectum; F41.1 Generalized anxiety disorder; G47.33 Obstructive sleep apnea (adult) (pediatric); I10 Essential (primary) hypertension; B35.1 Tinea unguium; E66.9 Obesity, unspecified; Z68.39 Body mass index [BMI] 39.0-39.9, adult; Z79.899 Other long term (current) drug therapy; Z88.8 Allergy status to other drugs, medicaments and biological substances; Z88.1 Allergy status to other antibiotic agents; Z98.890 Other specified postprocedural states
CPT/HCPCS: 00812; J2250; J2704; J7120

== ENCOUNTER 2021-08-08 13:32 | Emergency (ER) | payer BC ==
[2021-08-08] MEDS: Ondansetron 4 MG/2 ML SDV IVPUSH ONE (13:44)
[2021-08-08] MEDS: Sodium Chloride 0.9% 1,000 ML IV ONE (13:44)
[2021-08-08] MEDS: Sodium Chloride 0.9% 10 ML Syringe FLUSH PRN (13:47)
[2021-08-08 14:07] LABS: ANION GAP 12.7 mmol/L (5-15)
[2021-08-08] MEDS: Ketorolac 30 MG/ML SDV IVPUSH ONE (14:29)
[2021-08-08] MEDS: Ketorolac 30 MG/ML SDV ONE (14:30)
[2021-08-08 14:31] VITALS: BP 152/84; PULSE 89
== END 2021-08-08 15:00 | disposition home or self-care (01) ==
LOC: KA.ED 13:32
DX: R42 Dizziness and giddiness (principal); R53.81 Other malaise; T50.B95A Adverse effect of other viral vaccines, initial encounter; I10 Essential (primary) hypertension; K21.9 Gastro-esophageal reflux disease without esophagitis; Z79.899 Other long term (current) drug therapy; M19.90 Unspecified osteoarthritis, unspecified site; Z79.82 Long term (current) use of aspirin; Z88.1 Allergy status to other antibiotic agents; Z88.8 Allergy status to other drugs, medicaments and biological substances
CPT/HCPCS: 36415; 80053; 85025; 96361; 96374; 96375; 99283-25; 99284; J1885; J2405; J3490; J7030

== ENCOUNTER 2022-03-29 18:33 | Emergency (ER) | payer BC ==
[2022-03-29] MEDS ORDERED: Sodium Chloride 0.9% 1,000 ML IV ONE (18:50)
[2022-03-29] MEDS ORDERED: Sodium Chloride 0.9% 10 ML Syringe FLUSH PRN (18:51)
[2022-03-29 19:25] LABS: ANION GAP 12.8 mmol/L (5-15)
[2022-03-29 19:46] LABS: RESPIRATORY SYNCYTIAL VIR NAA NEGATIVE (NEGATIVE)
[2022-03-29 19:47] LABS: CORONAVIRUS COVID-19 NAA POSITIVE (NEGATIVE)
[2022-03-29] MEDS ORDERED: Potassium Chloride 10 MEQ Tab.ER PO ONE (20:07)
[2022-03-29 23:47] VITALS: BP 175/100; PULSE 116
== END 2022-03-29 20:35 | disposition home or self-care (01) ==
LOC: KA.ED 18:33
DX: U07.1 COVID-19 (principal); I10 Essential (primary) hypertension; K21.9 Gastro-esophageal reflux disease without esophagitis; M19.90 Unspecified osteoarthritis, unspecified site; Z88.2 Allergy status to sulfonamides; Z88.8 Allergy status to other drugs, medicaments and biological substances; Z79.82 Long term (current) use of aspirin; Z79.899 Other long term (current) drug therapy
CPT/HCPCS: 0241U; 71045; 80053; 85025; 96360; 99283; A9270; J3490; J7030; 99284

== ENCOUNTER 2022-08-29 12:50 | Emergency (ER) | payer BC ==
[2022-08-29 13:10] VITALS: BP 159/90; PULSE 82
[2022-08-29 13:25] LABS: BASOPHILS ABSOLUTE AUTO 0.05 10^3/uL (0.00-0.10); BASOPHILS PERCENT AUTO 0.7 % (0.0-1.0); EOSINOPHILS PERCENT AUTO 4.4 % (1.0-3.0); HEMATOCRIT 38.8 % (37.0-47.0); HEMOGLOBIN 12.6 g/dL (12.0-16.0); IMMATURE GRAN ABSOLUTE AUTO 0.01 10^3/uL (0.00-0.50); IMMATURE GRAN PERCENT AUTO 0.1 % (0.0-5.0); LYMPHOCYTES PERCENT AUTO 29.4 % (20.0-40.0); MEAN CORPUSCULAR HEMOGLOBIN 27.8 pg (27.0-31.0); MEAN CORPUSCULAR HGB CONC 32.5 g/dL (32.0-36.0); MEAN CORPUSCULAR VOLUME 85.5 fL (82.0-92.0); MEAN PLATELET VOLUME 9.4 fL (7.4-10.4); MONOCYTES ABSOLUTE AUTO 0.49 10^3/uL (0.10-0.80); MONOCYTES PERCENT AUTO 7.2 % (2.0-8.0); NEUTROPHILS ABSOLUTE AUTO 3.95 10^3/uL (2.50-7.00); NEUTROPHILS PERCENT AUTO 58.2 % (50.0-70.0); PLATELET COUNT,PLT 296 10^3/uL (150-400); RED BLOOD CELL COUNT 4.54 10^6/uL (3.80-5.50); RED CELL DISTRIBUTION WIDTH 13.8 % (11.5-14.5)
[2022-08-29 13:43] LABS: ALBUMIN 3.4 g/dL (3.40-5.00); ANION GAP 10.9 mmol/L (5-15); BILIRUBIN TOTAL 0.3 mg/dL (0.2-1.0); CALCIUM 9.6 mg/dL (8.7-10.3); CARBON DIOXIDE,CO2 31.2 mmol/L (21.0-32.0); CREATININE 0.65 mg/dL (0.51-1.17); EST CRCL DRUG DOSING (CG) 77.09 mL/min; POTASSIUM,K 3.1 mmol/L (3.5-5.1); PROTEIN TOTAL,TP 7.2 g/dL (6.4-8.2)
== END 2022-08-29 15:12 | disposition home or self-care (01) ==
LOC: KA.ED 12:50
DX: R07.89 Other chest pain (principal); E87.6 Hypokalemia; K21.9 Gastro-esophageal reflux disease without esophagitis; E66.9 Obesity, unspecified; I10 Essential (primary) hypertension; Z68.38 Body mass index [BMI] 38.0-38.9, adult; Z88.1 Allergy status to other antibiotic agents; Z79.82 Long term (current) use of aspirin; Z79.899 Other long term (current) drug therapy; Z88.8 Allergy status to other drugs, medicaments and biological substances; Z91.09 Other allergy status, other than to drugs and biological substances; Z86.16 Personal history of COVID-19
CPT/HCPCS: 36415; 71046; 80053; 83880; 84484; 85025; 85379; 99285

== ENCOUNTER 2024-07-06 16:05 | Observation (INO) | payer OTHER ==
[2024-07-06] MEDS ORDERED: Sodium Chloride 0.9% 10 ML Syringe FLUSH PRN (16:09)
[2024-07-06] MEDS ORDERED: Nitroglycerin 0.4 MG Tab.SL SL PRN (16:10)
[2024-07-06] MEDS: Aspirin 81 MG Tab.Chew PO ONE (16:13)
[2024-07-06 16:26] LABS: BASOPHILS ABSOLUTE AUTO 0.06 10^3/uL (0.00-0.10); BASOPHILS PERCENT AUTO 0.8 % (0.0-1.0); EOSINOPHILS ABSOLUTE AUTO 0.27 10^3/uL (0.10-0.30); EOSINOPHILS PERCENT AUTO 3.5 % (1.0-3.0); HEMATOCRIT 41.6 % (37.0-47.0); IMMATURE GRAN ABSOLUTE AUTO 0.01 10^3/uL (0.00-0.04); IMMATURE GRAN PERCENT AUTO 0.1 % (0.0-0.4); LYMPHOCYTES ABSOLUTE AUTO 2.19 10^3/uL (1.00-4.00); LYMPHOCYTES PERCENT AUTO 28.3 % (20.0-40.0); MEAN CORPUSCULAR HEMOGLOBIN 28.3 pg (27.0-31.0); MEAN CORPUSCULAR HGB CONC 33.7 g/dL (32.0-36.0); MEAN CORPUSCULAR VOLUME 84.2 fL (82.0-92.0); MEAN PLATELET VOLUME 9.6 fL (7.4-10.4); MONOCYTES ABSOLUTE AUTO 0.81 10^3/uL (0.10-0.80); MONOCYTES PERCENT AUTO 10.5 % (2.0-8.0); NEUTROPHILS ABSOLUTE AUTO 4.41 10^3/uL (2.50-7.00); NEUTROPHILS PERCENT AUTO 56.8 % (50.0-70.0); PLATELET COUNT,PLT 382 10^3/uL (150-400); RED BLOOD CELL COUNT 4.94 10^6/uL (3.80-5.50); RED CELL DISTRIBUTION WIDTH 13.8 % (11.5-14.5); WHITE BLOOD CELL COUNT,WBC 7.75 10^3/uL (5.00-10.00)
[2024-07-06] MEDS: Metoprolol Tartrate 5 MG/5 ML SDV IVPUSH ONE ×2 (16:39→17:00)
[2024-07-06 16:43] LABS: ALBUMIN 3.84 g/dL (3.40-5.00); ANION GAP 15.5 mmol/L (5-15); BILIRUBIN TOTAL 0.4 mg/dL (0.2-1.0); CALCIUM 10.2 mg/dL (8.7-10.3); CARBON DIOXIDE,CO2 26.6 mmol/L (21.0-32.0); CREATININE 0.73 mg/dL (0.51-1.17); EST CRCL DRUG DOSING (CG) 66.95 mL/min; POTASSIUM,K 3.1 mmol/L (3.5-5.1)
[2024-07-06 18:36] LABS: MAGNESIUM 1.7 mg/dL (1.8-2.4); TSH ULTRASENSITIVE 1.286 uIU/mL (0.340-4.820)
[2024-07-06] MEDS ORDERED: Ondansetron 4 MG Tab.DIS PO PRN (20:04)
[2024-07-06] MEDS ORDERED: Melatonin 3 MG Tab PO PRN (20:04)
[2024-07-06] MEDS ORDERED: Acetaminophen 325 MG Tab PO PRN (20:09)
[2024-07-06] MEDS: Magnesium Sulfate 2 GM/50 mL 2 GM in Premix Bag 1 BAG IV ONE (21:04)
[2024-07-06] MEDS: Sodium Chloride 0.9% 50 ML IV SCH (21:04)
[2024-07-06] MEDS: Acetaminophen 325 MG Tab PO PRN (21:05)
[2024-07-06] MEDS: DULoxetine 30 MG Cap PO SCH (21:06)
[2024-07-06] MEDS: Apixaban 5 MG Tab PO SCH (21:06)
[2024-07-06] MEDS: Potassium Chloride 20 MEQ Tab.ER PO ONE (21:06)
[2024-07-07] MEDS: Omeprazole 20 MG Cap.CR PO SCH (06:24)
[2024-07-07 07:40] LABS: CALCIUM 9.7 mg/dL (8.7-10.3); CARBON DIOXIDE,CO2 29.5 mmol/L (21.0-32.0); CREATININE 0.7 mg/dL (0.51-1.17); EST CRCL DRUG DOSING (CG) 69.81 mL/min; MAGNESIUM 2.1 mg/dL (1.8-2.4); POTASSIUM,K 3.5 mmol/L (3.5-5.1)
[2024-07-07] MEDS: DULoxetine 30 MG Cap PO SCH (08:18)
[2024-07-07] MEDS: Multivitamins with Minerals/Iron/Folic Acid/Lycopene Tab PO SCH (08:18)
[2024-07-07] MEDS: Loratadine 10 MG Tab PO SCH (08:18)
[2024-07-07] MEDS: Lisinopril 20 MG Tab PO SCH (08:19)
[2024-07-07] MEDS: Hydrochlorothiazide 25 MG Tab PO SCH (08:19)
[2024-07-07] MEDS: [UNRECOGNIZED DRUG - REMARK] PO SCH (08:19)
[2024-07-07 09:20] VITALS: BP 125/68; PULSE 76
== END 2024-07-07 09:17 | disposition home or self-care (01) ==
LOC: KA.ED 16:05 → KA.MS 18:12
PROVIDERS: ADMIT Internal Medicine; ATTEND Internal Medicine
DX: I48.0 Paroxysmal atrial fibrillation (principal); K21.9 Gastro-esophageal reflux disease without esophagitis; F41.9 Anxiety disorder, unspecified; F32.A Depression, unspecified; E83.42 Hypomagnesemia; E87.6 Hypokalemia; Z79.899 Other long term (current) drug therapy; Z88.2 Allergy status to sulfonamides; Z88.8 Allergy status to other drugs, medicaments and biological substances
CPT/HCPCS: 36415; 71045; 80048; 80053; 83735; 84443; 84484; 85025; 93005; 93010; 96374; 99223-GT; 99239-GT; 99284; 99285-25; A9270-GY; G0378; J3475; J3490; Q3014

== ENCOUNTER 2024-08-27 00:57 | Emergency (ER) | payer OTHER ==
[2024-08-27 01:31] LABS: BASOPHILS ABSOLUTE AUTO 0.04 10^3/uL (0.00-0.10); BASOPHILS PERCENT AUTO 0.4 % (0.0-1.0); EOSINOPHILS ABSOLUTE AUTO 0.15 10^3/uL (0.10-0.30); EOSINOPHILS PERCENT AUTO 1.5 % (1.0-3.0); IMMATURE GRAN ABSOLUTE AUTO 0.01 10^3/uL (0.00-0.04); IMMATURE GRAN PERCENT AUTO 0.1 % (0.0-0.4); LYMPHOCYTES ABSOLUTE AUTO 3.65 10^3/uL (1.00-4.00); LYMPHOCYTES PERCENT AUTO 37.6 % (20.0-40.0); MEAN PLATELET VOLUME 9.4 fL (7.4-10.4); MONOCYTES ABSOLUTE AUTO 0.65 10^3/uL (0.10-0.80); MONOCYTES PERCENT AUTO 6.7 % (2.0-8.0); NEUTROPHILS ABSOLUTE AUTO 5.22 10^3/uL (2.50-7.00); NEUTROPHILS PERCENT AUTO 53.7 % (50.0-70.0); PLATELET COUNT,PLT 312 10^3/uL (150-400); RED BLOOD CELL COUNT 4.25 10^6/uL (3.80-5.50); RED CELL DISTRIBUTION WIDTH 14.1 % (11.5-14.5); WHITE BLOOD CELL COUNT,WBC 9.72 10^3/uL (5.00-10.00)
[2024-08-27 01:42] LABS: ALANINE AMINOTRANSFERASE,ALT 30 U/L (14-63); ASPARTATE AMNIOTRANSFERASE,AST 14 U/L (15-37); BILIRUBIN TOTAL 0.5 mg/dL (0.2-1.0); BLOOD UREA NITROGEN,BUN 24 mg/dL (7-18); CARBON DIOXIDE,CO2 27.4 mmol/L (21.0-32.0); CHLORIDE,CL 102 mmol/L (98-107); CREATININE 0.97 mg/dL (0.51-1.17); ESTIMATED GFR 66 mL/min (>=60); GLUCOSE RANDOM 171 mg/dL (70-140); POTASSIUM,K 3.1 mmol/L (3.5-5.1); PROTEIN TOTAL,TP 7.9 g/dL (6.4-8.2); SODIUM,NA 141 mmol/L (136-145)
[2024-08-27 01:45] LABS: GLUCOSE,URINE NEGATIVE (NEGATIVE); OCCULT BLOOD,URINE NEGATIVE (NEGATIVE)
[2024-08-27] MEDS: Ondansetron 4 MG/2 ML SDV IVPUSH ONE ×2 (01:50→04:32)
[2024-08-27 01:59] LABS: APPEARANCE,URINE SLIGHTLY CLOUDY (CLEAR)
[2024-08-27 02:00] LABS: EPITHELIAL CELLS,URINE RARE /LPF; YEAST,URINE RARE /HPF (NEGATIVE)
[2024-08-27] MEDS: Ampicillin/Sulbactam Na 3 GM in Sodium Chloride 0.9% 100 ML IV ONE (05:35)
[2024-08-27 06:10] VITALS: BP 164/96; PULSE 76
[2024-08-27] MEDS: Iopamidol 755 Mg/ML 100 ML Bottle IV ONE (09:01)
== END 2024-08-27 05:50 ==
LOC: KA.ED 00:57
DX: I10 Essential (primary) hypertension (principal)
CPT/HCPCS: 74177; 80053; 81001; 83690; 85025; 86140; 96361; 96374; 96375; 96376; 99284; 99285-25; J0295; J1171; J2405; J7030; Q9967